=== PATIENT | female | born 1950 ===

== ENCOUNTER → 2017-10-23 | Emergency (ER) | payer OTHER ==
[~2017-10-23] VITALS: Ht 167.6 cm; Wt 73.9 kg
[~2017-10-23] MED LIST: LOSARTAN-HCTZ1 EAC1 PO; MECLIZINE HCL25 M1 PO; METFORMIN HCL500 MG PO
== END | disposition home or self-care (01) ==
LOC: ER 10:21 → CPU-OBS 10:35
DX: R07.89 Other chest pain (principal); R42 Dizziness and giddiness

== ENCOUNTER → 2020-11-01 | Outpatient (CLI) | payer OTHER | END | disposition home or self-care (01) | LOC: SONOGRAMA 09:46 | DX: D34 Benign neoplasm of thyroid gland (principal); E04.1 Nontoxic single thyroid nodule; E07.89 Other specified disorders of thyroid ==

== ENCOUNTER 2022-02-13 09:13 | Outpatient (CLI) | payer OTHER | END 2022-02-13 14:47 | disposition home or self-care (01) | LOC: SONOGRAMA 09:13 | PROVIDERS: ATTEND Pathology Anatomic Pathology & Clinical Pathology | DX: E07.9 Disorder of thyroid, unspecified (principal); E04.1 Nontoxic single thyroid nodule ==